=== PATIENT | female | born 1995 | race Caucasian/White ===

== ENCOUNTER 2023-10-08 01:11 | Emergency (ER) | payer SELFPAY ==
[2023-10-08 01:21] VITALS: BP 136/93; PULSE 80; RESP 16; TEMP 36.6; O2SAT 97; BMI 27.2
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
[2023-10-08 02:55] VITALS: BP 136/93; PULSE 64; O2SAT 97
[2023-10-08 04:08] VITALS: BP 136/93; PULSE 54; O2SAT 97
[2023-10-08 04:43] VITALS: BP 136/93; PULSE 59; O2SAT 95
== END 2023-10-08 04:44 | disposition home or self-care (01) ==
PROVIDERS: Emergency Provider Emergency Medicine
DX: Z04.1 Encounter for examination and observation following transport accident (principal); V40.6XXA Car passenger injured in collision with pedestrian or animal in traffic accident, initial encounter
CPT/HCPCS: 72070; 72100; 99283